=== PATIENT | male | born 2000 | race Caucasian/White ===

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

== ENCOUNTER 2019-04-11 22:13 | Emergency (ER) | payer OTHER ==
[~2019-04-11] VITALS: Ht 180.3 cm; Wt 100.0 kg
[2019-04-12 02:00] VITALS: BP 132/75
== END 2019-04-12 03:14 | disposition home or self-care (01) ==
LOC: EMS 22:13
DX: L50.9 Urticaria, unspecified (principal)